=== PATIENT | male | born 1975 | race Caucasian/White ===

== ENCOUNTER 2017-05-09 11:16 | Emergency (ER) | payer OTHER ==
[~2017-05-09] VITALS: Ht 167.6 cm; Wt 86.4 kg
[2017-05-09] MEDS ORDERED: SERO1TAB2 PO (11:31)
[2017-05-09] MEDS ORDERED: HYDR-643 PO (11:31)
[2017-05-09] MEDS ORDERED: TETRACAINE 0.5% OPHTH SOLN 4ML OS ONE (12:15)
[2017-05-09] MEDS ORDERED: FLUORESCEIN OPHTH 1 MG STRIP OS ONE (12:15)
[2017-05-09] MEDS ORDERED: IRRIGATION OPHTH SOLN (EYE WASH) 120ML OS ONE (12:45)
[2017-05-09] MEDS ORDERED: TOBR3OPD OS (13:17)
[2017-05-09 13:34] VITALS: BP 132/70
== END 2017-05-09 13:36 | disposition home or self-care (01) ==
LOC: M ED 11:16
DX: T15.92XA Foreign body on external eye, part unspecified, left eye, initial encounter (principal); H53.8 Other visual disturbances; Y92.89 Other specified places as the place of occurrence of the external cause; Y93.89 Activity, other specified; Y99.8 Other external cause status; F41.9 Anxiety disorder, unspecified; F33.9 Major depressive disorder, recurrent, unspecified; F43.10 Post-traumatic stress disorder, unspecified; Z79.899 Other long term (current) drug therapy

== ENCOUNTER → 2017-06-19 | Outpatient (REF) ==
[~2017-06-19] MED LIST: HYDR-643 PO; SERO1TAB2 PO; TOBR3OPD OS
--- NOTE | 2017-06-19 13:23 | REP ---
Bilateral knees: Right knee four views with the patient standing: There are no comparisons. Mineralization and joint spaces are normal. There is no fracture or dislocation. No calcifications or foreign bodies. There is no effusion. Impression: Negative standing views of the right knee. Left knee four views with the patient standing: Mineralization and joint spaces are normal. There is no fracture or dislocation. No calcifications or foreign bodies. There is no effusion. Impression: Negative standing views of the left knee. Signed by Carlos Mattson MD 06/19/2017 01:15 P
== END ==
LOC: M RAD 11:38
DX: M25.569 Pain in unspecified knee (principal)

== ENCOUNTER → 2018-08-12 | Outpatient (CLI) | payer OTHER, MEDICAID ==
[2018-08-12 19:36] LABS: HEMATOCRIT 44.6 % (42.0-52.0); HEMOGLOBIN 14.8 g/dl (13.5-17.5); MEAN CORPUSCULAR HEMOGLOBIN 32.1 pg (27.0-33.0); MEAN CORPUSCULAR HGB CONC 33.2 g/dl (32.0-36.5); MEAN CORPUSCULAR VOLUME 96.7 fl (80.0-96.0); PLATELET COUNT, AUTOMATED 252 10^3/uL (150-450); RED BLOOD COUNT 4.61 10^6/uL (4.30-6.10); WHITE BLOOD COUNT 7.7 10^3/uL (4.0-10.0)
[2018-08-12 19:39] LABS: APPEARANCE, URINE CLEAR (CLEAR); BACTERIA, URINE AUTO NEGATIVE (NEGATIVE); BILIRUBIN, URINE AUTO NEGATIVE (NEGATIVE); BLOOD, URINE BLOOD 2+ (NEGATIVE); COLOR, URINE STRAW (YELLOW); GLUCOSE, URINE (UA) AUTO NEGATIVE (NEGATIVE); KETONE, URINE AUTO NEGATIVE (NEGATIVE); LEUKOCYTE ESTERASE, URINE AUTO 1+ (NEGATIVE); NITRITE, URINE AUTO NEGATIVE (NEGATIVE); PROTEIN, URINE AUTO NEGATIVE (NEGATIVE); RBC, URINE AUTO 1 /HPF (0-3); SPECIFIC GRAVITY URINE AUTO 1.003 (1.002-1.035); SQUAMOUS EPITHELIAL CELL UR AU 0 /HPF (0-6); UROBILINOGEN, URINE AUTO 0.2 mg/dL (0.0-2.0); WBC, URINE AUTO 7 /HPF (0-3)
[2018-08-12 19:52] LABS: INR 0.95; PARTIAL THROMBOPLASTIN TIME 26.9 SECONDS (25.4-37.6); PROTHROMBIN TIME 12.7 SECONDS (12.1-14.4)
[2018-08-12 20:07] LABS: ANION GAP 5 MEQ/L (8-16); BLOOD UREA NITROGEN 5 MG/DL (7-18); CALCIUM LEVEL 8.7 MG/DL (8.5-10.1); CARBON DIOXIDE LEVEL 31 MEQ/L (21-32); CHLORIDE LEVEL 103 MEQ/L (98-107); CREATININE FOR GFR 0.93 MG/DL (0.70-1.30); GLOMERULAR FILTRATION RATE > 60.0 (>60); GLUCOSE, FASTING 86 MG/DL (70-100); POTASSIUM SERUM 4.2 MEQ/L (3.5-5.1); SODIUM LEVEL 139 MEQ/L (136-145)
== END ==
LOC: M WUC 16:11
DX: Z01.812 Encounter for preprocedural laboratory examination (principal); N20.0 Calculus of kidney
CPT/HCPCS: 80048

== ENCOUNTER 2018-08-21 14:17 | Day surgery (SDC) | payer OTHER, MEDICAID ==
[2018-08-21] MEDS: LR 1,000 ML IV (14:34)
[2018-08-21] MEDS ORDERED: dexameTHASONE 4 MG/ML 1ML VIAL (J1100) As Ordered ×2 (16:33)
[2018-08-21] MEDS ORDERED: ONDANSETRON 4MG/2ML VIAL (J2405) As Ordered (16:33)
[2018-08-21] MEDS ORDERED: LIDOCAINE 2% INJ 100 MG/5 ML SDV (FOR ANES.) As Ordered (16:33)
[2018-08-21] MEDS ORDERED: PROPOFOL 200 MG/20 ML VIAL As Ordered (16:33)
[2018-08-21] MEDS ORDERED: fentaNYL 250 MCG/5 ML INJECTION (J3010) As Ordered (16:34)
[2018-08-21] MEDS ORDERED: MIDAZOLAM INJ 2 MG/2 ML VIAL (J2250) As Ordered (16:36)
[2018-08-21] MEDS: CONRAY-60 60% 50ML VIAL (Q9961) As Ordered (17:47)
[2018-08-21] MEDS ORDERED: fentaNYL 100 MCG/2 ML INJECTION (J3010) As Ordered (19:50)
[2018-08-21] MEDS: fentaNYL 100 MCG/2 ML INJECTION (J3010) IV (19:58)
[2018-08-21] MEDS ORDERED: PERCOCET 5MG/325MG TAB As Ordered ×2 (20:09→20:32)
[2018-08-21] MEDS: PERCOCET 5MG/325MG TAB PO ×2 (20:11→20:35)
[2018-08-21] MEDS ORDERED: MORPHINE 10 MG/ML 1ML VIAL (J2270) IV (20:45)
[2018-08-21] MEDS ORDERED: PERCOCET 5MG/325MG TAB PO ×2 (20:45)
[2018-08-21] MEDS ORDERED: ONDANSETRON 4MG/2ML VIAL (J2405) IV (20:45)
[2018-08-21] MEDS ORDERED: LR 1,000 ML IV (20:45)
== END 2018-08-21 22:40 | disposition home or self-care (01) ==
LOC: M SDC 14:17
DX: N20.0 Calculus of kidney (principal); K21.9 Gastro-esophageal reflux disease without esophagitis; F41.9 Anxiety disorder, unspecified; F32.9 Major depressive disorder, single episode, unspecified; R51 Headache; F43.10 Post-traumatic stress disorder, unspecified
CPT/HCPCS: 52356

== ENCOUNTER 2018-09-04 08:19 | Emergency (ER) | payer SELFPAY | END 2018-09-04 09:00 | disposition home or self-care (01) | LOC: M ED 08:19 | DX: N23 Unspecified renal colic (principal); F17.200 Nicotine dependence, unspecified, uncomplicated | CPT/HCPCS: 99281 ==

== ENCOUNTER 2018-09-04 09:06 | Day surgery (SDC) | payer SELFPAY, MEDICAID ==
[2018-09-04] MEDS: LR 1,000 ML IV (10:05)
[2018-09-04] MEDS ORDERED: MIDAZOLAM INJ 2 MG/2 ML VIAL (J2250) As Ordered (10:54)
[2018-09-04] MEDS ORDERED: LIDOCAINE 2% INJ 100 MG/5 ML SDV (FOR ANES.) As Ordered (10:54)
[2018-09-04] MEDS ORDERED: PROPOFOL 200 MG/20 ML VIAL As Ordered ×2 (10:54→11:18)
[2018-09-04] MEDS ORDERED: fentaNYL 100 MCG/2 ML INJECTION (J3010) As Ordered (10:55)
[2018-09-04] MEDS ORDERED: GLYCOPYRROLATE INJ 0.2 MG/ML 2 ML VIAL As Ordered (11:10)
[2018-09-04] MEDS ORDERED: ONDANSETRON 4MG/2ML VIAL (J2405) As Ordered (11:21)
[2018-09-04] MEDS ORDERED: dexameTHASONE 4 MG/ML 1ML VIAL (J1100) As Ordered (11:21)
== END 2018-09-04 14:00 | disposition home or self-care (01) ==
LOC: M SDC 14:00
DX: N20.0 Calculus of kidney (principal); F43.10 Post-traumatic stress disorder, unspecified; F41.9 Anxiety disorder, unspecified; F32.9 Major depressive disorder, single episode, unspecified; K21.9 Gastro-esophageal reflux disease without esophagitis; M12.9 Arthropathy, unspecified; R51 Headache; Z72.0 Tobacco use
CPT/HCPCS: 50590

== ENCOUNTER → 2018-09-25 | Outpatient (CLI) | payer MEDICAID, SELFPAY ==
[~2018-09-25] MED LIST changes: +AK-T0.3S OS; +FLOM0.4C39 PO; +PERC5TAB12 PO; -TOBR3OPD OS
--- NOTE | 2018-09-25 11:21 | REP ---
KUB: Single view. HISTORY: Kidney stones. COMPARISON STUDY: September 04, 2018. FINDINGS: Bowel gas pattern is normal. 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 There is calcific material adjacent to the proximal end of the stent to the upper pole moiety. This calcification measures 6 mm. There is calcific material in the lower pole intrarenal collecting system as well. This measures 8 mm in greatest diameter. The previous study showed a large amount of calcific material in the upper pole collecting system around the proximal pigtail stent loop. This has cleared from the upper tracts and is seen in large measure stacked up in the distal ureter adjacent to the distal end of the stent. There are stones occupying a 3.1 cm length of distal ureter adjacent to the stent. 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 Upper tract calcific material persists as well. Electronically Signed by Han Bradley MD 09/25/2018 01:02 P
== END ==
LOC: M SMT 10:46
PROVIDERS: ATTEND Urology
DX: N20.0 Calculus of kidney (principal); Z96.0 Presence of urogenital implants